=== PATIENT | female | born 1930 | race Caucasian/White ===

== ENCOUNTER 2016-08-19 16:59 | Emergency (ER) | payer MEDICARE, OTHER ==
[2016-08-19] MEDS ORDERED: traMADol HCl 50 MG TAB ONE (17:22)
--- NOTE | 2016-08-19 18:23 | RAD ---
LEFT KNEE FOUR VIEWS: HISTORY: Fall on knee. FINDINGS: There are arthritic changes of the knee with medial compartment narrowing. There are no signs of fr acture, dislocation, or joint effusion. IMPRESSION: Moderate arthritic changes of the knee. POS: XU
--- NOTE | 2016-08-19 18:24 | RAD ---
RIGHT KNEE FOUR VIEWS: HISTORY: The patient tripped and fell with knee pain. FINDINGS: There are marked arthritic changes of the medial compartment of the knee with severe medial compartm ent narrowing. Mild arthritic changes of the patellofemoral joint space allergic rhinitis seen. Th ere are no signs of any acute fracture. IMPRESSION: Marked arthritic changes of the knee. POS: [facility]
--- NOTE | 2016-08-19 18:28 | RAD ---
LEFT HAND THREE VIEWS: HISTORY: Fall and cut hand. FINDINGS/IMPRESSION: There are arthritic changes of the hand and wrist. Changes are most pronounced at the distal interp halangeal joints of the index and middle fingers and first carpometacarpal joint space. There is no sign of any definite acute fracture. Marked arthritic changes at the DIP joints, particularly the middle and little fingers, make it difficult to exclude a subtle fracture. POS: [facility]
--- NOTE | 2016-08-19 19:35 | ERRECORD ---
[facility] EMERGENCY RECORD HPI GENERAL (17:57 KNGU) CHIEF COMPLAINT: Patient presents for evaluation of s/p fallen on both knee with pain also injury to back of L hand. HISTORIAN: History provided by patient, 85 yo F fell on both knee to floor with pain also L hand with laceration. no direct trauma to head/ no loc / no headache / or neck pain. MECHANISM OF INJURY: Mechanism of injury fall. LOCATION: Symptoms are localized, most severe to b/l knee L hand. QUALITY: Pain is dull in nature. SEVERITY: Maximum severity of symptoms moderate, Currently symptoms are moderate. TIME COURSE: Sudden onset of symptoms, There has been no change in the patient's symptoms over time. ASSOCIATED WITH: No associated symptoms. EXACERBATED BY: Patient's condition exacerbated by pressure on knee. RELIEVED BY: Nothing tried for relief. ROS (17:59 KNGU) CONSTITUTIONAL: Negative constitutional review of systems. EYES: Negative eye review of systems. ENT: Negative ears, nose, throat review of systems. CARDIOVASCULAR: Negative cardiovascular review of systems. RESPIRATORY: Negative respiratory review of systems. GI: Negative gastrointestinal review of systems. GENITOURINARY FEMALE: Negative genitourinary review of systems. MUSCULOSKELETAL: Historian reports injury, b/l knee pain swelling L hand laceration. NEUROLOGIC: Negative neurologic review of systems. NOTES: All systems reviewed, negative except as described above. PAST MEDICAL HISTORY (17:16 JPAR) MEDICAL HISTORY: Past medical history includes cardiac history, Treated with angioplasty, Treated with stent placement, Number of stents: 3, Past medical history includes history of hyperlipidemia, high cholesterol, Past medical history includes history of hypertension, which has been treated, Past medical history includes history of obesity, pulmonary disease. chronic obstructive pulmonary disease. FEMALE SURGICAL HISTORY: Cardiac Stents X 3 2004, [facility], throat surgery, blocked bowels, colonostomy. SOCIAL HISTORY: Patient is a former tobacco user, smoked cigarettes, Patient quit smoking more than 10 years &a-1R&a+25V*p+0X*u9707G*c202B*c15G*c2P*p-0X&a-25V&a+1R Name: Jana Trotter : 1930 F85 MedRec: [id number] AcctNum: [id number] Prepared: Mert Aug 19, 2016 20:59 by Interface Page 1 of 3 pMD [facility] EMERGENCY RECORD ago. KNOWN ALLERGIES No Known Drug Allergies CURRENT MEDICATIONS Plavix: TABLET : Strength - 75 mg : ORAL Patient Dose: 1 tab(s) Oral once a day. (17:09 JPAR) aspirin: TABLET : Strength - 81 mg : ORAL Patient Dose: 1 tab(s) Oral once a day (in the morning). (17:09 JPAR) Synthroid: TABLET : Strength - 75 mcg : ORAL Patient Dose: 1 tab(s) Oral once a day.Pt does not know dosage. (17:10 JPAR) Lipitor: TABLET : Strength - 20 mg : ORAL Patient Dose: 1 tab(s) Oral once a day (at bedtime).do not know dosage. (17:10 JPAR) magnesium oxide: TABLET : Strength - 400 mg : ORAL Patient Dose: 1 tab(s) Oral 2 times a day. (17:11 JPAR) VITAL SIGNS VITAL SIGNS: BP: 168/79, Pulse: 76, Resp: 18, Temp: 97.5 (Oral), Pain: 8, O2 sat: 96, Time: 08/19/2016 17:06. (17:06 JPAR) BP: 159/73, Pulse: 72, Resp: 18, Pain: 4, O2 sat: 97, Time: 08/19/2016 18:42. (18:42 JPAR) PHYSICAL EXAM (18:25 KNGU) CONSTITUTIONAL: Vital signs reviewed, Patient afebrile, Pulse normal, Blood pressure, hypertensive, Respiratory rate normal, Patient appears non toxic, Patient appears in pain, in mild pain distress, Patient alert and oriented to person, place and time. HEAD: Head exam normal, Head exam included findings of head atraumatic. EYES: Eye exam normal. NECK: Neck exam normal, Neck exam included findings of normal range of motion. RESPIRATORY CHEST: Respiratory exam included findings of. UPPER EXTREMITY: L hand with about 7 cm linear laceration on dorsal side / area cleansed no foreign body seen / superficial / skin is thin and also some swelling not able to suture or use dermabond / sterile strips were used to reapproximate skin no complication. LOWER EXTREMITY: Sensation intact, Posterior tibial pulse normal, &a-1R&a+25V*p+0X*x4668B*c202B*c15G*c2P*p-0X&a-25V&a+1R Name: Jana Trotter : 1930 F85 MedRec: [id number] AcctNum: [id number] Prepared: Mert Aug 19, 2016 20:59 by Interface Page 2 of 3 pMD [facility] EMERGENCY RECORD b/ l knee swollen and tender to palpation anteriorly decrease rom 2nd to pain. NEURO: Neuro exam normal. MEDICATION ADMINISTRATION SUMMARY Drug Name: traMADol, Dose Ordered: 1 tab(s), Route: Oral, Status: Given, Time: 17:24 08/19/2016, Detailed record available in Medication Service section. DOCTOR NOTES (17:43 KNGU) TEXT: 85 yo F fell on both knee to floor with pain also L hand with laceration xray no acute fracture or dislocation laceration on L dorsal hand / cannot closed with dermabond or sutures sterile strips used to reapproximate and close wound to follow up with pcp in 2 days for wound recheck tetanus uptodate. PROBLEM LIST No recorded problems DIAGNOSIS (18:28 KNGU) FINAL: PRIMARY: L hand laceration, ADDITIONAL: b/l knee contusion. PRESCRIPTION traMADol: TABLET : 50 mg : ORAL : Quantity: 1 Unit: tab(s) Route: ORAL Schedule: every 8 hours PRN Dispense: 15 Unit: tab(s) May substitute. Refills: No Refills . (18:27 KNGU) NOTES: No Refills. (18:27 KNGU) traMADol (REPRINT): TABLET : 50 mg : ORAL : Quantity: 1 Unit: tab(s) Route: ORAL Schedule: every 8 hours PRN Dispense: 15 Unit: tab(s) May substitute. Refills: No Refills . (18:53 KNGU) DISPOSITION PATIENT: Disposition Type: Discharge, Disposition: *Discharge Home. (18:28 KNGU) Patient left the department. (18:56 [facility]) Betancur: CASSIDY=SAAD Siegel, Matti KNGU=MD Linda, Christine &a-1R&a+25V*p+0X*l4651J*c202B*c15G*c2P*p-0X&a-25V&a+1R Name: Jana Trotter : 1930 F85 MedRec: [id number] AcctNum: [id number] Prepared: Mert Aug 19, 2016 20:59 by Interface Page 3 of 3 pMD MTDD
--- NOTE | 2016-08-19 19:39 | PICIS ---
[facility] EMERGENCY RECORD TRIAGE (ThuAug 19, 2016 17:08 JPAR) TRIAGE NOTES: Trip and fall to knees, cut L hand on chait in bedroom. (ThuAug 19, 2016 17:08 JPAR) PATIENT: NAME: Jana Trotter, AGE: 85, GENDER: female, : Sat 1930, TIME OF GREET: ThuAug 19, 2016 17:01, PREFERRED LANGUAGE: [place]er, ETHNICITY: Not or , ECODE BILLING MAP: [facility], SSN: [id number], Zip Code: [address], KG WEIGHT: 99.79, PHONE: CELL, , , PERSON ID: [id number], PCP: Raymond MESA WADE. (ThuAug 19, 2016 17:08 JPAR) COMPLAINT: FELL,LT HAND INJ,KNEES PAIN. (ThuAug 19, 2016 17:08 JPAR) ADMISSION: URGENCY: 4 Non Urgent, ADMISSION SOURCE: Home, TRANSPORT: CAR, BED: TRIAGE. (ThuAug 19, 2016 17:08 JPAR) ASSESSMENT: Assessment: slip and fall at home in bedroom cut top of left hand and bruised knees, Symptoms began 1 hour, Symptoms began 1 hour ago. (17:16 JPAR) IMMUNIZATIONS: Flu vaccine up to date, Tetanus immunization up to date, Pneumococcal vaccine up to date. (17:16 JPAR) SIRS SCORING: Heart Rate 55-109 (0), Temp range 96.8-101.1 (0), respiratory rate 12-24 (0), Mental Status altered: no (0), Infection or Suspected Infection: No. (17:16 JPAR) TRIAGE SCREENING: Patient denies suicidal ideation, Patient denies presence of domestic violence. (17:16 JPAR) PROVIDERS: TRIAGE NURSE: Matti Siegel RN. (ThuAug 19, 2016 17:08 JPAR) VITAL SIGNS: BP 168/79, Pulse 76, Resp 18, Temp 97.5, (Oral), Pain 8, O2 Sat 96, Time 08/19/2016 17:06. (17:06 JPAR) KNOWN ALLERGIES No Known Drug Allergies CURRENT MEDICATIONS Plavix: TABLET : Strength - 75 mg : ORAL Patient Dose: 1 tab(s) Oral once a day. (17:09 JPAR) aspirin: TABLET : Strength - 81 mg : ORAL Patient Dose: 1 tab(s) Oral once a day (in the morning). (17:09 JPAR) Synthroid: TABLET : Strength - 75 mcg : ORAL Patient Dose: 1 tab(s) Oral once a day.Pt does not know dosage. (17:10 JPAR) Lipitor: TABLET : Strength - 20 mg : ORAL Patient Dose: 1 tab(s) Oral once a day (at bedtime).do not know dosage. (17:10 JPAR) magnesium oxide: TABLET : Strength - 400 mg : ORAL &a-1R&a+25V*p+0X*v7006K*c202B*c15G*c2P*p-0X&a-25V&a+1R Name: Jana Trotter : 1930 F85 MedRec: [id number] AcctNum: [id number] Prepared: Mert Aug 19, 2016 20:59 by Interface Page 1 of 8 pMD [facility] EMERGENCY RECORD Patient Dose: 1 tab(s) Oral 2 times a day. (17:11 JPAR) VITAL SIGNS VITAL SIGNS: BP: 168/79, Pulse: 76, Resp: 18, Temp: 97.5 (Oral), Pain: 8, O2 sat: 96, Time: 08/19/2016 17:06. (17:06 JPAR) BP: 159/73, Pulse: 72, Resp: 18, Pain: 4, O2 sat: 97, Time: 08/19/2016 18:42. (18:42 JPAR) NURSING ASSESSMENT: EXTREMITY LOWER (17:10 JPAR) CONSTITUTIONAL: Patient arrives, via hospital wheelchair, Gait steady, History obtained from patient, Patient appears, anxious, Patient cooperative, Patient alert, Oriented to person, place and time, Skin warm, Skin dry, Skin normal in color, Mucous membranes pink, Mucous membranes moist, Patient complains of fall to knees in bedroom, left knee swollen pt able to bear weight. PAIN: aching pain, to the left knee, Onset of pain 1 hour, on a scale 0-10 patient rates pain as 8. LEFT LOWER EXTREMITY: Left lower extremity assessment findings include capillary refill less than 2 seconds, Skin color normal, Skin temperature warm, Distal sensation intact, Muscle tone normal, muscle strength 4, +1 edema present, posterior tibia pulse is +3, dorsalis pedis pulse is +3, Inspection findings include swelling, to L Knee. RIGHT LOWER EXTREMITY: Right lower extremity assessment findings include capillary refill less than 2 seconds, Skin color normal, Skin temperature warm, Distal sensation intact, Muscle tone normal, muscle strength 4, +1 edema present, posterior tibia pulse is +3, dorsalis pedis pulse is +3, Inspection findings include swelling, to Knee. SAFETY: Side rails up, Cart/Stretcher in lowest position, Call light within reach, Hospital ID band on. NURSING ASSESSMENT: SKIN (17:10 JPAR) CONSTITUTIONAL: Patient arrives, via hospital wheelchair, Gait steady, History obtained from patient, Patient appears, anxious, Patient cooperative, Patient alert, Oriented to person, place and time, Skin warm, Skin dry, Skin normal in color, Mucous membranes pink, Mucous membranes moist, Patient complains of Skin Tear top of left hand, trip and fall in bedroom fell to knees. PAIN: aching pain, Onset of pain 1 hour, on a scale 0-10 patient rates pain as 8. SKIN: Skin assessment findings include skin warm, Skin dry, Skin normal in color, Inspection findings include laceration, to skin tear top of left hand, length (cm) 3cm, bleeding controlled. SAFETY: Side rails up, Cart/Stretcher in lowest position, Call light within reach, Hospital ID band on. &a-1R&a+25V*p+0X*p7528L*c202B*c15G*c2P*p-0X&a-25V&a+1R Name: Jana Trotter : 1930 F85 MedRec: [id number] AcctNum: [id number] Prepared: Mert Aug 19, 2016 20:59 by Interface Page 2 of 8 pMD [facility] EMERGENCY RECORD NURSING PROCEDURE: DISCHARGE NOTE (18:43 JPAR) DISCHARGE: Patient discharged to home, in a wheelchair, friend driving, accompanied by friend, Summary of Care printed/ provided, Patient requested and was provided an electronic copy of Discharge Instructions, Transition record given to patient, Discharge instructions given to patient, Simple or moderate discharge teaching performed, Prescriptions given and instructions on side effects given, Name of prescription(s) given: Tramadol, Medication reconciliation form given, Above person(s) verbalized understanding of discharge instructions and follow-up care, Patient treated and evaluated by physician. BELONGINGS: Belongings and valuables with patient at time of discharge include:, Belongings remain with patient, Valuables remain with patient. SAFETY: Side rails up, Cart/Stretcher in lowest position, Call light within reach, Hospital ID band on. NURSING PROCEDURE: NURSE NOTES (17:26 JPAR) NURSES NOTES: Patient in no apparent distress, Notes: Hand soaked in hibiclense and water. Family Friend at bedside helping patient out of stockings and pants. NURSING PROCEDURE: WOUND CARE (18:15 JPAR) PATIENT IDENTIFIER: Patient actively involved in identification process, Patient's identity verified by patient stating name, Patient's identity verified by patient stating date, Patient's identity verified by hospital ID bracelet. TIMEOUT: Prior to procedure, correct patient verified by, Correct procedure verified, Correct site verified, Correct equipment utilized, Timeout not performed due to emergent nature of procedure. WOUND CARE: Wound care indicated for wound debridement and cleansing, Wound care indicated for preparing wound for repair, Wound care indicated to promote healing, Wound site: top of R hand, Cause of wound: trip and fall/ skin tear, Wound irrigated with 250 mL of normal saline, Wound cleansed with Hibiclens, Wound repaired with steri-strips, Tetanus status unknown. SAFETY: Side rails up, Cart/Stretcher in lowest position, Call light within reach, Hospital ID band on. ORDER DETAILS Order Name: chart element #1, Status: Active, Time: 18:15 08/19/2016, User: System, - Ordered for: MD Linda, Christine, - Entered by: SAAD Siegel, Matti Painting Aug 19, 2016 18:15, - Quantity: 1, Order Name: chart element #4, Status: Active, Time: 18:15 08/19/2016, User: System, &a-1R&a+25V*p+0X*n1173V*c202B*c15G*c2P*p-0X&a-25V&a+1R Name: Jana Trotter : 1930 F85 MedRec: [id number] AcctNum: [id number] Prepared: ThuAug 19, 2016 20:59 by Interface Page 3 of 8 pMD [facility] EMERGENCY RECORD - Ordered for: MD Mckeon Kim, - Entered by: SAAD Siegel Jason - ThuAug 19, 2016 18:15, - Quantity: 1, Order Name: XR Hand Lt 3 View STANDARD, Status: Active, Time: 17:21 08/19/2016, User: BRENDA, - Ordered for: MD Mckeon Kim, - Entered by: MD Mckeon Kim - ThuAug 19, 2016 17:21, - Quantity: 1, Order Name: XR Knee Lt 4 View STANDARD, Status: Active, Time: 17:21 08/19/2016, User: BRENDA, - Ordered for: MD Mckeon Kim, - Entered by: MD Mckeon Kim - ThuAug 19, 2016 17:21, - Quantity: 1, Order Name: XR Knee Rt 4 View STANDARD, Status: Active, Time: 17:21 08/19/2016, User: BRENDA, - Ordered for: MD Mckeon Kim, - Entered by: MD Mckeon Kim - ThuAug 19, 2016 17:21, - Quantity: 1. MEDICATION ADMINISTRATION SUMMARY Drug Name: traMADol, Dose Ordered: 1 tab(s), Route: Oral, Status: Given, Time: 17:24 08/19/2016, Detailed record available in Medication Service section. MEDICATION SERVICE (17:24 BRENDA) traMADol: Order: traMADol (tramadol HCl) - Dose: 1 tab(s) : Oral Schedule: Now Ordered by: Christnie Mckeon MD Entered by: Christine Mckeon MD ThuAug 19, 2016 17:20 , Acknowledged by: Matti Siegel RN ThuAug 19, 2016 17:21 Documented as given by: Matti Siegel RN ThuAug 19, 2016 17:24 Patient, Medication, Dose, Route and Time verified prior to administration. Patient appears Awake and alert- acceptable, Correct patient, time, route, dose and medication confirmed prior to administration, Patient advised of actions and side-effects prior to administration, Allergies confirmed and medications reviewed prior to administration, Patient in position of comfort, Side rails up, Cart in lowest position, Call light in reach. HPI GENERAL (17:57 KNGU) CHIEF COMPLAINT: Patient presents for evaluation of s/p fallen on both knee with pain also injury to back of L hand. HISTORIAN: History provided by patient, 85 yo F fell on both knee to floor with pain also L hand with laceration. no direct trauma to head/ no loc / no headache / or neck pain. &a-1R&a+25V*p+0X*l5088S*c202B*c15G*c2P*p-0X&a-25V&a+1R Name: Jana Trotter : 1930 F85 MedRec: [id number] AcctNum: [id number] Prepared: Mert Aug 19, 2016 20:59 by Interface Page 4 of 8 pMD [facility] EMERGENCY RECORD MECHANISM OF INJURY: Mechanism of injury fall. LOCATION: Symptoms are localized, most severe to b/l knee L hand. QUALITY: Pain is dull in nature. SEVERITY: Maximum severity of symptoms moderate, Currently symptoms are moderate. TIME COURSE: Sudden onset of symptoms, There has been no change in the patient's symptoms over time. ASSOCIATED WITH: No associated symptoms. EXACERBATED BY: Patient's condition exacerbated by pressure on knee. RELIEVED BY: Nothing tried for relief. ROS (17:59 KNGU) CONSTITUTIONAL: Negative constitutional review of systems. EYES: Negative eye review of systems. ENT: Negative ears, nose, throat review of systems. CARDIOVASCULAR: Negative cardiovascular review of systems. RESPIRATORY: Negative respiratory review of systems. GI: Negative gastrointestinal review of systems. GENITOURINARY FEMALE: Negative genitourinary review of systems. MUSCULOSKELETAL: Historian reports injury, b/l knee pain swelling L hand laceration. NEUROLOGIC: Negative neurologic review of systems. NOTES: All systems reviewed, negative except as described above. PAST MEDICAL HISTORY (17:16 JPAR) MEDICAL HISTORY: Past medical history includes cardiac history, Treated with angioplasty, Treated with stent placement, Number of stents: 3, Past medical history includes history of hyperlipidemia, high cholesterol, Past medical history includes history of hypertension, which has been treated, Past medical history includes history of obesity, pulmonary disease. chronic obstructive pulmonary disease. FEMALE SURGICAL HISTORY: Cardiac Stents X 3 2004, [facility], throat surgery, blocked bowels, colonostomy. SOCIAL HISTORY: Patient is a former tobacco user, smoked cigarettes, Patient quit smoking more than 10 years ago. PHYSICAL EXAM (18:25 KNGU) CONSTITUTIONAL: Vital signs reviewed, Patient afebrile, Pulse normal, Blood pressure, hypertensive, Respiratory rate normal, Patient appears non toxic, Patient appears in pain, in mild pain distress, Patient alert and oriented to person, place and time. &a-1R&a+25V*p+0X*d9853Z*c202B*c15G*c2P*p-0X&a-25V&a+1R Name: Jana Trotter : 1930 F85 MedRec: [id number] AcctNum: [id number] Prepared: Mert Aug 19, 2016 20:59 by Interface Page 5 of 8 pMD [facility] EMERGENCY RECORD HEAD: Head exam normal, Head exam included findings of head atraumatic. EYES: Eye exam normal. NECK: Neck exam normal, Neck exam included findings of normal range of motion. RESPIRATORY CHEST: Respiratory exam included findings of. UPPER EXTREMITY: L hand with about 7 cm linear laceration on dorsal side / area cleansed no foreign body seen / superficial / skin is thin and also some swelling not able to suture or use dermabond / sterile strips were used to reapproximate skin no complication. LOWER EXTREMITY: Sensation intact, Posterior tibial pulse normal, b/ l knee swollen and tender to palpation anteriorly decrease rom 2nd to pain. NEURO: Neuro exam normal. EVENTS TRANSFER: Triage to Emergency Triage. (17:08 JPAR) Emergency Triage to Emergency Room -04. (17:10 MSPE) Removed from Emergency Emergency Room -04. (18:56 JPAR) DOCTOR NOTES (17:43 KNGU) TEXT: 85 yo F fell on both knee to floor with pain also L hand with laceration xray no acute fracture or dislocation laceration on L dorsal hand / cannot closed with dermabond or sutures sterile strips used to reapproximate and close wound to follow up with pcp in 2 days for wound recheck tetanus uptodate. PROBLEM LIST No recorded problems DIAGNOSIS (18:28 KNGU) FINAL: PRIMARY: L hand laceration, ADDITIONAL: b/l knee contusion. DISPOSITION PATIENT: Disposition Type: Discharge, Disposition: *Discharge Home. (18:28 KNGU) Patient left the department. (18:56 JPAR) INSTRUCTION (18:53 KNGU) DISCHARGE: EXTREMITY CONTUSION LOWER, HAND LACERATION, WOUND CARE. FOLLOWUP: Romel MESA., [facility], [address] [place] [id number], [phone]. SPECIAL: can use sue wrap on knees as needed for support keep L hand elevated / keep area dry and clean &a-1R&a+25V*p+0X*z2833M*c202B*c15G*c2P*p-0X&a-25V&a+1R Name: Jana Trotter : 1930 F85 MedRec: [id number] AcctNum: [id number] Prepared: ThuAug 19, 2016 20:59 by Interface Page 6 of 8 pMD [facility] EMERGENCY RECORD to recheck with your pcp in 2-3 days Follow-up with your PCP. PRESCRIPTION traMADol: TABLET : 50 mg : ORAL : Quantity: 1 Unit: tab(s) Route: ORAL Schedule: every 8 hours PRN Dispense: 15 Unit: tab(s) May substitute. Refills: No Refills . (18:27 KNGU) NOTES: No Refills. (18:27 KNGU) traMADol (REPRINT): TABLET : 50 mg : ORAL : Quantity: 1 Unit: tab(s) Route: ORAL Schedule: every 8 hours PRN Dispense: 15 Unit: tab(s) May substitute. Refills: No Refills . (18:53 KNGU) IMAGING *SUPPLY CHARGE SHEET: Image captured from scanner. (18:52 JPAR) *DISCHARGE INSTRUCTIONS RECEIPT: Image captured from scanner. (18:53 JPAR) ADMIN (20:56 KNGU) DIGITAL SIGNATURE: MD Mckeon Kim. RESULTS (18:35 KNGU) RADIOLOGY: XR Hand Lt 3 View STANDARD Observe DT: ThuAug 19, 2016 17:23, HAND3L LEFT HAND THREE VIEWS: HISTORY: Fall and cut hand. FINDINGS/IMPRESSION: There are arthritic changes of the hand and wrist. Changes are most pronounced at the distal interp halangeal joints of the index and middle fingers and first carpometacarpal joint space. There is no sign of any definite acute fracture. Marked arthritic changes at the DIP joints, particularly the middle and little fingers, make it difficult to exclude a subtle fracture. POS: [facility] . XR Knee Rt 4 View STANDARD Observe DT: ThuAug 19, 2016 17:23, KNEE4R RIGHT KNEE FOUR VIEWS: HISTORY: The patient tripped and fell with knee pain. &a-1R&a+25V*p+0X*c7398T*c202B*c15G*c2P*p-0X&a-25V&a+1R Name: Jana Trotter : 1930 F85 MedRec: [id number] AcctNum: [id number] Prepared: ThuAug 19, 2016 20:59 by Interface Page 7 of 8 pMD [facility] EMERGENCY RECORD FINDINGS: There are marked arthritic changes of the medial compartment of the knee with severe medial compartm ent narrowing. Mild arthritic changes of the patellofemoral joint space allergic rhinitis seen. Th ere are no signs of any acute fracture. IMPRESSION: Marked arthritic changes of the knee. POS: [facility] . XR Knee Lt 4 View STANDARD Observe DT: ThuAug 19, 2016 17:23, KNEE4L LEFT KNEE FOUR VIEWS: HISTORY: Fall on knee. FINDINGS: There are arthritic changes of the knee with medial compartment narrowing. There are no signs of fr acture, dislocation, or joint effusion. IMPRESSION: Moderate arthritic changes of the knee. POS: [facility] . Betancur: CASSIDY=SAAD Siegel, Matti GUTIERREZ=MD Linda, Christine FABIAN=SAAD German, Twyla &a-1R&a+25V*p+0X*h4915L*c202B*c15G*c2P*p-0X&a-25V&a+1R Name: Jana Trotter : 1930 F85 MedRec: [id number] AcctNum: [id number] Prepared: ThuAug 19, 2016 20:59 by Interface Page 8 of 8 pMD MTDD
== END 2016-08-19 18:43 | disposition home or self-care (01) ==
LOC: NAV ERS 16:59
DX: S61.412A Laceration without foreign body of left hand, initial encounter (principal); S80.02XA Contusion of left knee, initial encounter; S80.01XA Contusion of right knee, initial encounter; I10 Essential (primary) hypertension; J44.9 Chronic obstructive pulmonary disease, unspecified; E78.00 Pure hypercholesterolemia, unspecified; E78.5 Hyperlipidemia, unspecified; Z87.891 Personal history of nicotine dependence; Z95.5 Presence of coronary angioplasty implant and graft; Z79.01 Long term (current) use of anticoagulants; Z79.82 Long term (current) use of aspirin; Z79.899 Other long term (current) drug therapy; W19.XXXA Unspecified fall, initial encounter
CPT/HCPCS: 99284